=== PATIENT | female | born 1970 | race Hispanic/Latino ===

== ENCOUNTER 2020-10-11 09:00 | Outpatient (RCR) | payer MEDICARE, OTHER | END 2020-10-18 | disposition home or self-care (01) | LOC: RESP 09:00 | PROVIDERS: ATTEND Internal Medicine | DX: I27.0 Primary pulmonary hypertension (principal); J98.4 Other disorders of lung; R06.02 Shortness of breath | CPT/HCPCS: G0238 ×2; G0424 ×2 ==

== ENCOUNTER 2020-10-25 16:33 | Outpatient (RCR) | payer OTHER | END 2020-11-17 | LOC: RESP 16:33 | PROVIDERS: ATTEND Internal Medicine Cardiovascular Disease | DX: J84.9 Interstitial pulmonary disease, unspecified (principal); I27.0 Primary pulmonary hypertension; R06.02 Shortness of breath | CPT/HCPCS: G0238 ×4; G0424 ×4 ==

== ENCOUNTER 2024-09-07 19:04 | Emergency (ER) | payer OTHER ==
[~2024-09-07] VITALS: Ht 157.5 cm; Wt 89.8 kg
[2024-09-07 19:16] VITALS: PULSE 84; RESP 18; TEMP 97.6
[2024-09-07] MEDS: ALBUTEROL/IPRATROPIUM 3 ML NEB NEB ONE (19:45)
[2024-09-07] MEDS ORDERED: VENTOLIN HFA18 GM INH (20:35)
[2024-09-07] MEDS ORDERED: AMOXICILLIN500 MG PO (20:36)
[2024-09-07 20:55] VITALS: BP 146/73; PULSE 84; RESP 18; TEMP 97.6; O2SAT 97
== END 2024-09-07 20:55 | disposition home or self-care (01) ==
LOC: FSED 19:09
DX: R05.9 Cough, unspecified (principal); J40 Bronchitis, not specified as acute or chronic; K76.9 Liver disease, unspecified; F41.9 Anxiety disorder, unspecified; F32.A Depression, unspecified; Z11.52 Encounter for screening for COVID-19
CPT/HCPCS: 0223U; 71046; 87400; 99283